=== PATIENT | female | born 1985 | race Caucasian/White ===

== ENCOUNTER 2017-06-22 13:48 | Emergency (ER) | payer BC ==
[2017-06-22] MEDS ORDERED: Metoclopramide IV* 5 MG/ML 2 ML VIAL IV ONE (14:05)
[2017-06-22] MEDS ORDERED: Meclizine TAB* 12.5 MG PO ONE (14:05)
[2017-06-22 14:28] LABS: Hematocrit 45 % (35-47); Hemoglobin 14.8 g/dl (12.0-16.0); Mean Corpuscular HGB Conc 33 g/dl (31-36); Mean Corpuscular Hemoglobin 27 pg (27-31); Mean Corpuscular Volume 83 fL (80-97); Mean Platelet Volume 9 um3 (7.4-10.4); Red Blood Count 5.45 10^6/ul (4.0-5.4); Red Cell Distribution Width 14 % (10.5-15); White Blood Count 13.3 10^3/ul (3.5-10.8)
[2017-06-22] MEDS: NS 0.9% 1000 ML* 2,000 ML IV ONE ×2 (14:42→14:43)
[2017-06-22 14:46] LABS: Albumin 4.4 g/dL (3.2-5.2); BUN/Creatinine Ratio 11.1 (8-20); Calcium 9.7 mg/dL (8.6-10.3); EGFR African American 122.3 (>60); EGFR Non-African American 95.1 (>60); Globulin 3.7 g/dL (2-4); Potassium 3.5 mmol/L (3.5-5.0); Total Bilirubin 0.6 mg/dL (0.2-1.0); Total Protein 8.1 g/dL (6.4-8.9)
[2017-06-22 17:03] VITALS: BP 120/62
--- NOTE | 2017-06-22 17:15 | ED ---
Lowell Funes Angela, scribed for Umesh Mcrae MD on 06/22/17 at 1406 . Dizziness - HPI Summary HPI Summary: This pt is a 32 y/o female, A3 currently 9 weeks , presenting to [facility] c/o dizziness since yesterday. She notes that yesterday she woke up with cold symptoms, post-nasal drip, sinus congestion, rhinorrhea, sore throat, cough , and mild left ear pain. Later that day she became dizzy and had vertigo. Pt additionally c/o vomiting for more than 24 hours. She states she has a sick contact, toddler who currently has a cold. Pt denies abd pain, diarrhea, back pain. This is her 8th , with No PMHX. - History Of Current Complaint Chief Complaint: EDDizziness Stated Complaint: 9 WKS PREG/VOMITING,DIZZINESS Time Seen by Provider: 06/22/17 13:57 Hx Obtained From: Patient Timing: Days Character: Room Spinning, Dizzy Aggravating Factor(s): Nothing Alleviating Factor(s): Nothing Associated Signs And Symptoms: Positive: Vomiting. Negative: Nausea, Diarrhea, Chest Pain, SOB - Allergies/Home Medications Allergies/Adverse Reactions: Allergies Allergy/AdvReac Type Severity Reaction Status Date / Time Codeine Allergy Nausea Verified 06/22/17 14:33 Hydrocodone Allergy Nausea Verified 06/22/17 14:33 PMH/Surg Hx/FS Hx/Imm Hx Endocrine/Hematology History: Denies: Hx Diabetes Cardiovascular History: Denies: Hx Hypertension - Surgical History Surgery Procedure, Year, and Place: Face surgery after being attack by a dog Infectious Disease History: Denies: Traveled Outside the [place] in Last 30 Days - Family History Known Family History: Negative: Respiratory Disease, Blood Disorder - Social History Occupation: Works From/At Home Alcohol Use: None Substance Use Type: Reports: None Smoking Status (MU): Never Smoked Tobacco Review of Systems Negative: Fever, Chills Eyes: Negative Positive: Sore Throat, Ear Ache - left, Nasal Discharge - rhinorrhea Negative: Palpitations, Chest Pain Positive: Cough. Negative: Shortness Of Breath Positive: Vomiting. Negative: Abdominal Pain, Diarrhea Genitourinary: Negative Musculoskeletal: Negative Skin: Negative Neurological: Other - Dizziness, vertigo Psychological: Normal All Other Systems Reviewed And Are Negative: Yes Physical Exam Triage Information Reviewed: Yes Vital Signs On Initial Exam: Initial Vitals Temp Pulse Resp BP Pulse Ox 98.7 F 101 20 135/90 100 06/22/17 13:51 06/22/17 13:51 06/22/17 13:51 06/22/17 13:51 06/22/17 13:51 Vital Signs Reviewed: Yes Appearance: Positive: Well-Appearing, No Pain Distress Skin: Positive: Warm Head/Face: Positive: Normal Head/Face Inspection ENT: Positive: Nasal congestion, TM dull - left, TM red - left Neck: Positive: Supple, Nontender Respiratory/Lung Sounds: Positive: Clear to Auscultation, Breath Sounds Present Cardiovascular: Positive: RRR. Negative: Murmur Abdomen Description: Positive: Nontender Musculoskeletal: Positive: Strength/ROM Intact Neurological: Positive: Sensory/Motor Intact, Alert, Oriented to Person Place, Time, CN Intact II-III, Finger to Nose - smooth, Speech Normal. Negative: Disoriented - Pepe Coma Scale Best Eye Response: 4 - Spontaneous Best Motor Response: 6 - Obeys Commands Best Verbal Response: 5 - Oriented Diagnostics - Vital Signs Vital Signs Temp Pulse Resp BP Pulse Ox 06/22/17 13:51 98.7 F 101 20 135/90 100 - Laboratory Result Diagrams: 06/22/17 14:15 06/22/17 14:15 Lab Statement: Any lab studies that have been ordered have been reviewed, and results considered in the medical decision making process. Re-Evaluation - Re-Evaluation First Eval Re-Evaluation Time: 16:35 Change: Improved Comment: The patient has no more nausea and no more vertigo. Dizzy Course/Dx - Course Course Of Treatment: 32 yr old female with the complaint of NV, URI symptoms of two days with a toddler with URI symptoms, she is 9 weeks with left ear pain, and with OM on exam. In the ED course, pt was given IV fluids, Reglan , and Meclizine. - Diagnoses Provider Diagnoses: Otitis media, Vertigo Discharge - Discharge Plan Condition: Good Disposition: HOME Prescriptions: Azithromycin TAB* [Zithromax TAB (Z-ELEANOR) 250 mg #6 tabs] 250 mg PO DAILY #6 tab Meclizine TAB* [Antivert 12.5 TAB*] 12.5 mg PO TID PRN #10 tab PRN Reason: Vertigo Patient Education Materials: Vertigo (ED), Otitis Media (ED), Upper Respiratory Infection (ED) Referrals: Toy Garza MD [Primary Care Provider] - The documentation as recorded by the Lowell lomeli Angela accurately reflects the service I personally performed and the decisions made by me, Umesh Mcrae MD.
== END 2017-06-22 17:03 | disposition home or self-care (01) ==
LOC: ED 13:48
DX: H66.90 Otitis media, unspecified, unspecified ear (principal); R42 Dizziness and giddiness; J02.9 Acute pharyngitis, unspecified
CPT/HCPCS: 36415; 80053; 85025; 96374; 99283; A9270-GY; J2765